=== PATIENT | male | born 1995 | race Caucasian/White ===

== ENCOUNTER 2017-09-02 16:54 | Emergency (ER) | payer OTHER ==
[2017-09-02 17:06] VITALS: BP 148/88
--- NOTE | 2017-09-02 17:06 | UC ---
Ear Complaint HPI - HPI Summary HPI Summary: 21 yo male presents with FB in his left ear. He tells me that he was listening to music with his headphones in and when he went to take them out the earbud came off the headphone and remained lodged within his ear. 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 No pain - History of Current Complaint Chief Complaint: UCEar Stated Complaint: FOREIGN OBJECT IN EAR Time Seen by Provider: 09/02/17 17:06 Hx Obtained From: Patient Severity Currently: None Pain Intensity: 0 - Allergies/Home Medications Allergies/Adverse Reactions: Allergies Allergy/AdvReac Type Severity Reaction Status Date / Time No Known Allergies Allergy Verified 09/02/17 17:05 Home Medications: Home Medications NK [No Home Medications Reported] 09/02/17 [History Confirmed 09/02/17] PMH/Surg Hx/FS Hx/Imm Hx Previously Healthy: Yes - Surgical History Surgical History: None - Family History Known Family History: Positive: None - Social History Occupation: Student Lives: With Family Alcohol Use: None Substance Use Type: None Smoking Status (MU): Never Smoked Tobacco Review of Systems Constitutional: Negative Skin: Negative Eyes: Negative ENT: Other - FB in left ear Respiratory: Negative Cardiovascular: Negative Neurovascular: Negative Neurological: Negative Psychological: Negative All Other Systems Reviewed And Are Negative: Yes Physical Exam - Summary Physical Exam Summary: GENERAL: NAD. WDWN. No pain distress. SKIN: No rashes, sores, lesions, or open wounds. HEENT: Head: AT/NC Eyes: Conjunctiva clear without inflammation or discharge. Ears: Hearing grossly normal. LEFT ear canal with silicone earbud lodged within. NECK: Supple. Nontender. No lymphadenopathy. CHEST: No accessory muscle use. Breathing comfortably and in no distress. CV: Pulses intact. Brisk cap refill. NEURO: Alert. PSYCH: Age appropriate behavior. Triage Information Reviewed: Yes Vital Signs: Initial Vital Signs Temp 99.5 F 09/02/17 17:01 Pulse 86 09/02/17 17:01 Resp 16 09/02/17 17:01 BP 148/88 09/02/17 17:01 Pulse Ox 99 09/02/17 17:01 Ear Complaint Course/Dx - Course Course Of Treatment: Ear bud FB removed with ease. Pt tolerated well. Left TM normal. - Differential Dx/Diagnosis Provider Diagnoses: FB removal from left ear Discharge - Sign-Out/Discharge Documenting (check all that apply): Discharge/Admit/Transfer - Discharge Plan Condition: Stable Disposition: HOME Patient Education Materials: Ear Foreign Body (ED) Referrals: No Primary Care Phys,NOPCP [Primary Care Provider] - Additional Instructions: If you develop a fever, shortness of breath, chest pain, new or worsening symptoms - please call your PCP or go to the ED. Your blood pressure was high at todays visit. Please see your primary provider within 4 weeks for recheck and re-evaluation. - Billing Disposition and Condition Condition: STABLE Disposition: Home
== END 2017-09-02 17:30 | disposition home or self-care (01) ==
LOC: UCEAST 16:54
DX: T16.2XXA Foreign body in left ear, initial encounter (principal); X58.XXXA Exposure to other specified factors, initial encounter; Y92.9 Unspecified place or not applicable
CPT/HCPCS: 99201; G0463

== ENCOUNTER 2019-04-10 10:03 | Emergency (ER) | payer BC, OTHER ==
--- NOTE | 2019-04-10 10:48 | ED ---
Lower Extremity - HPI Summary HPI Summary: Patient is a 23 y/o M presenting to [facility] with complaints of right knee pain and swelling after having fallen while skiing last evening, 04/09/19. He notes some difficulty bearing weight and decreased ROM but is capable of ambulating overall. He notes that twisting movements aggravate his pain. He denies PMHx and PSHx. Rare alcohol consumption is noted but he denies tobacco and substance usage. FMHx of cardiac disease and diabetes is noted. Home medications and allergies are reviewed. - History of Current Complaint Chief Complaint: EDExtremityLower Stated Complaint: FALL RIGHT LEG PAIN Hx Obtained From: Patient Mechanism Of Injury: Fall From A Standing Position Onset of Pain: Prior to Arrival Onset/Duration: Still Present Severity Currently: Moderate Pain Intensity: 4 Pain Scale Used: 0-10 Numeric Timing: Lasting Hours Location: Is Discrete @ - right knee Associated Signs And Symptoms: Positive: Swelling Aggravating Factor(s): Movement - twisting - Allergies/Home Medications Allergies/Adverse Reactions: Allergies Allergy/AdvReac Type Severity Reaction Status Date / Time No Known Allergies Allergy Verified 04/10/19 10:06 PMH/Surg Hx/FS Hx/Imm Hx Endocrine/Hematology History: Denies: Hx Diabetes Cardiovascular History: Denies: Hx Hypertension Sensory History: Denies: Hx Legally Blind, Hx Deafness Opthamlomology History: Denies: Hx Legally Blind EENT History: Denies: Hx Deafness Infectious Disease History: No Infectious Disease History: Denies: Traveled Outside the [place] in Last 30 Days - Family History Known Family History: Positive: Hypertension, Diabetes - Social History Alcohol Use: Rare Substance Use Type: Reports: None Smoking Status (MU): Never Smoked Tobacco Review of Systems Negative: Fever - on vitals, temp is 98.3 F Musculoskeletal: Other - positive - fall, difficulty weight-bearing Positive: Myalgia - right knee , Decreased ROM, Edema - right knee All Other Systems Reviewed And Are Negative: Yes Physical Exam - Summary Physical Exam Summary: VITAL SIGNS: Reviewed. GENERAL: Patient is a well-developed and nourished male who is lying comfortable in the stretcher. Patient is not in any acute respiratory distress. HEAD AND FACE: No signs of trauma. No ecchymosis, hematomas or skull depressions. No sinus tenderness. EYES: PERRLA, EOMI x 2, No injected conjunctiva, no nystagmus. EARS: Hearing grossly intact. Ear canals and tympanic membranes are within normal limits. MOUTH: Oropharynx within normal limits. NECK: Supple, trachea is midline, no adenopathy, no JVD, no carotid bruit, no c- spine tenderness, neck with full ROM. CHEST: Symmetric, no tenderness at palpation. LUNGS: Clear to auscultation bilaterally. No wheezing or crackles. CVS: Regular rate and rhythm, S1 and S2 present, no murmurs or gallops appreciated. ABDOMEN: Soft, non-tender. No signs of distention. No rebound, no guarding, and no masses palpated. Bowel sounds are normal. EXTREMITIES: Right knee swelling with no deformity. There is decreased ROM. No cyanosis or clubbing. NEURO: Alert and oriented x 3. No acute neurological deficits. Speech is normal and follows commands. SKIN: Dry and warm. Triage Information Reviewed: Yes Vital Signs On Initial Exam: Initial Vitals Temp Pulse Resp BP Pulse Ox 98.3 F 90 16 137/91 100 04/10/19 10:06 04/10/19 10:06 04/10/19 10:06 04/10/19 10:06 04/10/19 10:06 Vital Signs Reviewed: Yes Procedures - Sedation Patient Received Moderate/Deep Sedation with Procedure: No Diagnostics - Vital Signs Vital Signs Temp Pulse Resp BP Pulse Ox 04/10/19 10:06 98.3 F 90 16 137/91 100 - Laboratory Lab Statement: Any lab studies that have been ordered have been reviewed, and results considered in the medical decision making process. - Radiology RIGHT KNEE X-RAY Radiology Interpretation Completed By: Radiologist Summary of Radiographic Findings: IMPRESSION: JOINT EFFUSION. NO ACUTE OSSEOUS INJURY. IF SYMPTOMS PERSIST, RECOMMEND REPEAT IMAGING. THIS REPORT WAS REVIEWED BY ED PHYSICIAN. Lower Extremity Course/Dx - Course Assessment/Plan: Patient is a 23 y/o M presenting to [facility] with complaints of right knee pain and swelling after having fallen while skiing last evening, 04/09. He notes some difficulty bearing weight and decreased ROM but is capable of ambulating overall. He notes that twisting movements aggravate his pain. He denies PMHx and PSHx. Rare alcohol consumption is noted but he denies tobacco and substance usage. FMHx of cardiac disease and diabetes is noted. Home medications and allergies are reviewed. X-rays of the right knee impression: No acute fracture dislocation. The patient was able to bear weight, has some effusion and therefore he was placed in a knee immobilizer. He was given ibuprofen and advised to apply ice as needed. I discussed the findings and test results with the patient and agrees with the diagnosis, plan and the follow -up with the primary care physician. The patient is hemodynamically stable alert oriented 3. - Diagnoses Differential Diagnosis/HQI/PQRI: Positive: Arthritis, Bursitis, Cellulitis, Fracture (Closed), Sprain, Strain Provider Diagnoses: Right knee pain Discharge ED - Sign-Out/Discharge Documenting (check all that apply): Patient Departure - discharge - Discharge Plan Condition: Stable Disposition: HOME Patient Education Materials: Swollen Knee Joint (ED) Referrals: [facility] - MRDomo [Primary Care Provider] - Additional Instructions: Elevate and ice the right knee Take ibuprofen for pain Follow with primary care physician. Return if symptoms worsen. - Billing Disposition and Condition Condition: STABLE Disposition: Home - Attestation Statements Document Initiated by Dominick: Yes Documenting Scribe: NEERU GALEANO Provider For Whom Dominick is Documenting (Include Credential): MIGUEL ANGEL CARPIO MD Scribe Attestation: I, NEERU GALEANO, scribed for MIGUEL ANGEL CARPIO MD on 04/10/19 at [id number]. Scribe Documentation Reviewed: Yes Provider Attestation: The documentation as recorded by the NEERU zaidi accurately reflects the service I personally performed and the decisions made by me, MIGUEL ANGEL CARPIO MD Status of Scribe Document: Viewed
[2019-04-10] MEDS ORDERED: Ibuprofen TAB* 800 MG PO ONE (10:58)
[2019-04-10 12:02] VITALS: BP 158/94
== END 2019-04-10 12:01 | disposition home or self-care (01) ==
LOC: ED 10:03
DX: M25.561 Pain in right knee (principal); M25.461 Effusion, right knee; W19.XXXA Unspecified fall, initial encounter; Y93.23 Activity, snow (alpine) (downhill) skiing, snowboarding, sledding, tobogganing and snow tubing; Y92.9 Unspecified place or not applicable
CPT/HCPCS: 99282; A9270-GY